=== PATIENT | female | born 1940 | race Caucasian/White ===

== ENCOUNTER 2021-01-12 11:22 | Emergency (ER) | payer OTHER ==
[~2021-01-12] VITALS: Ht 162.6 cm; Wt 63.5 kg
[~2021-01-12 11:22] MED LIST: AMOX1TAB12 PO; COZAAR100 MG PO; JANUVIA100 MG PO; ULTRACET PO; ZOCOR5 MG
== END 2021-01-12 13:48 | disposition home or self-care (01) ==
LOC: ER 11:22
DX: M62.830 Muscle spasm of back (principal)

== ENCOUNTER 2022-07-31 07:23 | Emergency (ER) | payer OTHER ==
[~2022-07-31] VITALS: Ht 162.6 cm; Wt 63.5 kg
[2022-07-31] MEDS ORDERED: GLUCOTROL XL5 MG PO (07:32)
== END 2022-07-31 11:39 | disposition home or self-care (01) ==
LOC: ER 07:23
DX: M62.838 Other muscle spasm (principal); G44.89 Other headache syndrome; E86.0 Dehydration; I10 Essential (primary) hypertension; E11.9 Type 2 diabetes mellitus without complications; Z79.4 Long term (current) use of insulin

== ENCOUNTER 2023-02-15 13:22 | Emergency (ER) | payer OTHER ==
[~2023-02-15] VITALS: Ht 160 cm; Wt 77.1 kg
[~2023-02-15 13:22] MED LIST changes: +GLUCOTROL XL5 MG PO
[2023-02-15 15:14] LABS: HEMATOCRIT 32.2 % (36.0-45.00); HEMOGLOBIN 11.1 g/dL (12.0-15.00); MEAN CELL VOLUME 91.5 fL (80.00-100.00); MEAN CORPUSCULAR HEMOGLOBIN 31.6 pg (27.00-32.0); MEAN CORPUSCULAR HGB CONC 34.5 g/dl (32.0-36.0); PLATELET COUNT 446 K/uL (150-450); RED BLOOD COUNT 3.51 M/uL (4.00-6.00); RED CELL DISTRIBUTION WIDTH 13.6 % (11.5-14.5)
[2023-02-15 15:23] LABS: CALCIUM 8.8 mg/dL (8.5-10.1); CREATININE SERUM 1.09 mg/dL (0.55-1.02); GFR 48.3
[2023-02-15 15:42] LABS: POTASSIUM 2.89 mEq/L (3.5-5.1)
[2023-02-15 17:50] LABS: PH,URINE 5.5 (5.0-8.0); URINE APPEARANCE Clear; URINE BILIRRUBIN Negative (NEGATIVE); URINE BLOOD Negative; URINE COLOR Yellow; URINE GLUCOSE Negative (NEGATIVE); URINE LEUKOCYTE Small; URINE NITRATE Negative; URINE PROTEIN Negative (NEGATIVE); URINE UROBILINOGEN 0.2 E.U./dl
[2023-02-15 17:56] LABS: URINE BACTERIA 47.8 uL (0.0-1933); URINE EPITHELIAL CELLS 22.2 uL (0.0-38.8); URINE RBC 7.9 uL (0.0-20.8); URINE WBC 21.4 uL (0.0-23.2)
== END 2023-02-15 21:42 | disposition home or self-care (01) ==
LOC: ER 13:22
PROVIDERS: General Practice
DX: K52.89 Other specified noninfective gastroenteritis and colitis (principal); E86.0 Dehydration; Z20.822 Contact with and (suspected) exposure to COVID-19; I10 Essential (primary) hypertension; E11.9 Type 2 diabetes mellitus without complications; Z79.84 Long term (current) use of oral hypoglycemic drugs
CPT/HCPCS: 36415; 96365; 96366; 99284; J0744; J3490; J7030

== ENCOUNTER 2024-07-31 10:59 | Emergency (ER) | payer OTHER ==
[~2024-07-31] VITALS: Ht 160 cm; Wt 63.5 kg
[2024-07-31] MEDS ORDERED: GABAPENTIN100 M2 PO (14:06)
[2024-07-31] MEDS ORDERED: KETOROLAC TROMETHAMINE 30 MG VIAL ONE (14:09)
[2024-07-31] MEDS ORDERED: DEXAMETHASONE SODIUM PHOSPHATE 4 MG/ML VIAL ONE (14:09)
[2024-07-31] MEDS ORDERED: KETOROLAC TROMETHAMINE 30 MG VIAL IM ONE (14:15)
[2024-07-31] MEDS ORDERED: DEXAMETHASONE SODIUM PHOSP/PF 10 MG/ML VIAL IJ ONE (14:15)
== END 2024-07-31 14:22 | disposition home or self-care (01) ==
LOC: ER 11:01
DX: M54.31 Sciatica, right side (principal)
CPT/HCPCS: 96372; 99282; J1885